=== PATIENT | male | born 1990 | race Caucasian/White ===

== ENCOUNTER 2016-10-02 00:23 | Emergency (ER) | payer OTHER ==
[~2016-10-02] VITALS: Ht 182.9 cm; Wt 93.4 kg
[2016-10-02 00:29] VITALS: BP 144/69
--- NOTE | 2016-10-02 01:05 | ED GI/GU/ABDOMINAL COMPLAINT ---
History of Present Illness General Chief Complaint: General Adult Stated Complaint: EPIGASTRIC PAIN Source: patient Exam Limitations: no limitations Vital Signs & Intake/Output Vital Signs & Intake/Output Vital Signs Date Time Temp Pulse Resp B/P Pulse O2 O2 Flow FiO2 Ox Delivery Rate 10/02 0201 58 18 10/02 0029 97.6 56 18 144/69 98 Room Air Allergies Coded Allergies: No Known Drug Allergies (10/02/16) Reconcile Medications Pantoprazole Sodium (Protonix) 40 MG TABLET.DR 1 TAB PO DAILY GASTRITIS/REFLUX Triage Note: PT TO ED C/O EPIGASTRIC PAIN THAT WRAPS TO BACK, BOTH DIRECTIONS, RT SIDE>LEFT SIDE SINE 2200 PMH OF ACID REFLUX. TOOK 20 MG PEPCID 90 MINS TO 2 HRS AGO. DRANK A GLASS OF MILK "THE MILK HELPED ME A LITTLE" PAIN WORSE ON EXPIRATION. PAIN WORSE WHEN LYING DOWN, WORSE ON RT SIDE. DENIES N/V Triage Nurses Notes Reviewed? yes Onset: Gradual Duration: hour(s): Timing: recent history Quality/Severity: burning Location: epigastric Radiation: back Activities at Onset: eating Prior Abdominal Problems: similar symptoms Modifying Factors: Worsens With: eating, palpation. Associated Symptoms: abdominal pain HPI: 25 yo gentleman with mid epigastric abdominal pain that began at 9:30pm. He notes it began after eating perogis and coffee. He describes the pain as burning, and runs up the middle of his chest, and he feels it a little bit in his mid back. He notes slight nausea. He has no chest pain shortness of breath radiation down his arms or up his neck. He has no fever or chills. Using sputum production. He has had these symptoms in the past. He took a Zantac with only water at relief. He notes that at present he has no pain of any kind. Past History Travel History Traveled to [place] past 21 day No Medical History Any Pertinent Medical History? see below for history Gastrointestinal: GERD Surgical History Surgical History: none Psychosocial History What is your primary language Belgian Tobacco Use: Never used ETOH Use: occasional use Illicit Drug Use: denies illicit drug use Family History Hx Contributory? No Review of Systems Review of Systems Constitutional: Reports: no symptoms. EENTM: Reports: no symptoms. Respiratory: Reports: no symptoms. Cardiovascular: Reports: no symptoms. GI: Reports: no symptoms. Genitourinary: Reports: no symptoms. Musculoskeletal: Reports: no symptoms. Skin: Reports: no symptoms. Neurological/Psychological: Reports: no symptoms. Hematologic/Endocrine: Reports: no symptoms. Immunologic/Allergic: Reports: no symptoms. All Other Systems: Reviewed and Negative Physical Exam Physical Exam General Appearance: well developed/nourished, mild distress Head: atraumatic, normal appearance Eyes: Bilateral: normal appearance. Ears, Nose, Throat, Mouth: hearing grossly normal Neck: normal inspection, supple, full range of motion Respiratory: normal breath sounds, chest non-tender, no respiratory distress, quiet respiration, lungs clear Cardiovascular: regular rate/rhythm Gastrointestinal: normal bowel sounds, soft, mild midepigastric tenderness to palpation no rebound no guarding. Back: normal inspection, normal range of motion Extremities: normal range of motion, evidence of injury Neurologic/Psych: no motor/sensory deficits, awake, alert, oriented x 3 Skin: intact, normal color, warm/dry Core Measures ACS in differential dx? No Severe Sepsis Present: No Septic Shock Present: No Progress Differential Diagnosis: AMI, cholecystitis, gastritis, PUD/GERD Plan of Care: Orders Procedure Date/time Status Add-on Test (ER Only) 10/02 0109 Active EKG 10/02 0109 Active TROPONIN LEVEL 10/02 0048 Complete LIPASE 10/02 0048 Complete COMPREHENSIVE METABOLIC PANEL 10/02 0048 Complete CBC WITHOUT DIFFERENTIAL 10/02 0048 Complete AMYLASE 10/02 0048 Complete Laboratory Tests 10/02/16 0052: Anion Gap 11, Estimated GFR > 60, BUN/Creatinine Ratio 13.8, Glucose 89, Calcium 9.9, Total Bilirubin 0.4, AST 23, ALT 34, Alkaline Phosphatase 57, Troponin I < 0.01, Total Protein 7.5, Albumin 4.6, Globulin 2.9, Albumin/Globulin Ratio 1.6, Amylase 52, Lipase 77, CBC w Diff NO MAN DIFF REQ, RBC 4.89, MCV 83.6, MCH 29.0, RDW 12.4, MPV 7.7, Gran % 42.1 L, Lymphocytes % 49.2, Monocytes % 6.2, Eosinophils % 2.2, Basophils % 0.3, Absolute Granulocytes 2.8, Absolute Lymphocytes 3.2, Absolute Monocytes 0.4, Absolute Eosinophils 0.1, Absolute Basophils 0, PUBS MCHC 34.7 Initial ED EKG: normal axis, normal intervals, normal p-waves, normal QRS complex, normal sinus rhythm Departure Departure Disposition: HOME OR SELF CARE Condition: Stable Clinical Impression Primary Impression: Gastritis Secondary Impressions: Reflux gastritis Referrals: PRAVEEN JACKSON,YOSELIN Abdullahi (PCP/Family) Departure Forms: Customer Survey General Discharge Information Prescriptions: Current Visit Scripts Pantoprazole Sodium (Protonix) 1 TAB PO DAILY #30 TAB Ref 1 Comments Benign labs. Signs and symptoms most consistent with gastritis with reflux. I discussed this at great length with the patient, including dietary modification. I wrote a prescription for Protonix and advised close follow-up with his primary care doctor or return to the emergency department if symptoms return.
[2016-10-02 01:28] LABS: ABSOLUTE BASOPHIL COUNT 0 /CUMM (0.0-0.2); ABSOLUTE EOSINOPHIL COUNT 0.1 /CUMM (0.0-0.7); ABSOLUTE GRANULOCYTE CT 2.8 /CUMM (1.4-6.5); ABSOLUTE LYMPH COUNT 3.2 /CUMM (1.2-3.4); ABSOLUTE MONOCYTE COUNT 0.4 /CUMM (0.10-0.60); BASOPHIL % 0.3 % (0.0-2.0); EOSINOPHIL % 2.2 % (0-5); GRANULOCYTE % 42.1 % (42.2-75.2); HEMATOCRIT 40.8 % (42-52); MEAN CORPUSCULAR HGB CONC 34.7 G/DL (33.0-37.0); MEAN CORPUSCULAR VOLUME 83.6 FL (80.0-94.0); MEAN PLATELET VOLUME 7.7 FL (7.4-10.4); PLATELET COUNT 218 /CUMM (130-400); RBC DISTRIBUTION WIDTH 12.4 % (11.5-14.5); RED BLOOD CELL CT 4.89 /CUMM (4.70-6.10); WHITE BLOOD CELL COUNT 6.6 /CUMM (4.8-10.8)
[2016-10-02] MEDS ORDERED: PROTONIX40 M3 PO (01:53)
== END 2016-10-02 02:00 ==
LOC: ERH 00:23
PROVIDERS: Pediatrics
DX: K29.70 Gastritis, unspecified, without bleeding (principal); K21.9 Gastro-esophageal reflux disease without esophagitis
CPT/HCPCS: 93005; 93010